=== PATIENT | male | born 1945 | race Caucasian/White ===

== ENCOUNTER → 2024-08-31 | Outpatient (BNVA) | payer OTHER, SELFPAY | END | disposition home or self-care (01) | PROVIDERS: PCP Internal Medicine; Referring Provider Internal Medicine; Visit Provider Urology | DX: C61 Malignant neoplasm of prostate (principal); N40.1 Benign prostatic hyperplasia with lower urinary tract symptoms; N13.8 Other obstructive and reflux uropathy; I11.0 Hypertensive heart disease with heart failure; I50.9 Heart failure, unspecified; K21.9 Gastro-esophageal reflux disease without esophagitis; Z87.891 Personal history of nicotine dependence | CPT/HCPCS: 55700; 76872; 76942; 81003; 96372; 99212; A4649; J3260; J3490; A9270; G0463 ==

== ENCOUNTER → 2024-09-14 | Outpatient (BNVA) | payer OTHER, SELFPAY | END | disposition home or self-care (01) | PROVIDERS: PCP Internal Medicine; Referring Provider Internal Medicine; Visit Provider Urology | DX: N40.1 Benign prostatic hyperplasia with lower urinary tract symptoms (principal); N13.8 Other obstructive and reflux uropathy; C61 Malignant neoplasm of prostate; N32.81 Overactive bladder; G62.9 Polyneuropathy, unspecified; Z86.73 Personal history of transient ischemic attack (TIA), and cerebral infarction without residual deficits; K21.9 Gastro-esophageal reflux disease without esophagitis | CPT/HCPCS: 81003; 99212; G0463 ==

== ENCOUNTER → 2024-09-17 | Outpatient (BNVA) | payer OTHER, SELFPAY | END | disposition home or self-care (01) | PROVIDERS: PCP Internal Medicine; Referring Provider Internal Medicine; Visit Provider Urology | DX: C61 Malignant neoplasm of prostate (principal); I11.0 Hypertensive heart disease with heart failure; I50.9 Heart failure, unspecified; K21.9 Gastro-esophageal reflux disease without esophagitis | CPT/HCPCS: 99212; G0463 ==

== ENCOUNTER → 2024-12-21 | Outpatient (BNVA) | payer MEDICARE, OTHER, SELFPAY | END | disposition home or self-care (01) | PROVIDERS: PCP Internal Medicine; Referring Provider Internal Medicine; Visit Provider Urology | DX: N40.1 Benign prostatic hyperplasia with lower urinary tract symptoms (principal); N13.8 Other obstructive and reflux uropathy; C61 Malignant neoplasm of prostate; N32.81 Overactive bladder; G62.9 Polyneuropathy, unspecified; E66.9 Obesity, unspecified; Z68.26 Body mass index [BMI] 26.0-26.9, adult; I11.0 Hypertensive heart disease with heart failure; I50.9 Heart failure, unspecified; Z86.73 Personal history of transient ischemic attack (TIA), and cerebral infarction without residual deficits; K21.9 Gastro-esophageal reflux disease without esophagitis | CPT/HCPCS: 81003; 99212; G0463 ==

== ENCOUNTER → 2025-01-13 | Outpatient (CLI) | payer MEDICARE, OTHER, SELFPAY ==
--- NOTE | 2025-01-13 10:29 | XR_ITS ---
Examination: Shoulder,left, 3 views Technique: Shoulder AP internal rotation, AP external rotation, Y view shoulder, 3 views Exam date and time :January 13, 2025 1125 hours INDICATIONS: Patient fell 5 days ago with injury to the shoulder, shoulder pain. FINDINGS: Prominent osteopenia. No shoulder fracture or dislocation Moderate narrowing glenohumeral joint IMPRESSION: No fracture or shoulder dislocation
== END | disposition home or self-care (01) ==
LOC: CDIM 10:11
PROVIDERS: PCP Internal Medicine; Referring Provider Internal Medicine; Visit Provider Internal Medicine
DX: S49.92XA Unspecified injury of left shoulder and upper arm, initial encounter (principal); W19.XXXA Unspecified fall, initial encounter
CPT/HCPCS: 73030

== ENCOUNTER → 2025-01-28 | Outpatient (CLI) | payer MEDICARE, OTHER, SELFPAY ==
[2025-01-28 10:52] LABS: Blood Urea Nitrogen 24 mg/dL (9-23); Creatinine (Component) 1.2 mg/dL (0.6-1.3); eGFR > 60 See Note
== END | disposition home or self-care (01) ==
LOC: COPL 08:43
PROVIDERS: PCP Internal Medicine; Referring Provider Urology; Visit Provider Urology
DX: C61 Malignant neoplasm of prostate (principal)
CPT/HCPCS: 36415; 82565; 84520

== ENCOUNTER → 2025-02-17 | Outpatient (CLI) | payer MEDICARE, OTHER, SELFPAY ==
--- NOTE | 2025-02-17 12:46 | XR_ITS ---
Examination: MRI pelvis with intravenous contrast. MRI pelvis without intravenous contrast. Date and time of exam: February 17, 2025 1334 hours INDICATIONS: Diagnosis malignant neoplasm prostate 2 weeks ago, staging Technique: Multiple axial, sagittal and coronal sections of the pelvis obtained. Transverse images, TR 6020, TE 107. T1 weighted transverse images, TR 582, TE 9.5. T2-weighted sagittal images, TR 4000, TE 105. T2-weighted sagittal images, TR 4000, TE 5. Coronal images, TR 4210, TE 107. Axial and coronal images are obtained post 17 cc intravenous injection, gadolinium. Findings: No common iliac and external iliac internal iliac lymphadenopathy 16mm 9 mm right common femoral, 9 mm 8 mm left common femoral lymph nodes Normal seminal vesicles Transverse prostate dimension 5.1 cm 11 mm posterior left lateral prostate nodule No findings diagnostic for osseous metastatic disease IMPRESSION: 11 mm posterior left lateral prostate nodule Common femoral lymphadenopathy as above
== END | disposition home or self-care (01) ==
PROVIDERS: PCP Student in an Organized Health Care Education/Training Program; Referring Provider Physician Assistant; Visit Provider Physician Assistant
DX: N40.2 Nodular prostate without lower urinary tract symptoms (principal); R59.0 Localized enlarged lymph nodes
CPT/HCPCS: 72197; A9579

== ENCOUNTER → 2025-03-16 | Outpatient (CLI) | payer MEDICARE, OTHER, SELFPAY ==
--- NOTE | 2025-03-16 09:15 | XR_ITS ---
MRI shoulder, left, without contrast. Date and time: March 16, 2025 1014 hours INDICATIONS: Patient fell December 2024 with into the shoulder, shoulder pain decreased range of motion 25% abduction Technique: Multiple axial, sagittal and coronal sections of the shoulder have been obtained. Siemens high-resolution 1.5 Tricia MRI scanner is utilized. Axial fat-suppressed sections, TR 2350, TE 18 T2-weighted coronal fat-saturated images, TR 3500, TE 7100 T1-weighted coronal images, TR 500, TE 15 T2-weighted sagittal fat-saturated images, TR 3500, TE 57 T1-weighted sagittal sections, TR 504, TE 13. Findings: Large, 4 cm, full-thickness rotator cuff tear Subscapularis insertion is full-thickness tear. Subscapularis bursa is evident. Long head of the biceps is in the bicipital groove. No definite tear of the biceps superior labral anchor is seen. Retraction of the musculotendinous junction of the rotator cuff is prominent. Tendinosis pattern is moderate. Distance between the acromium and humeral head is 6 mm Atrophy of the supraspinatus muscle is severe. Atrophy of the infraspinatus muscle is severe. Sagittal sections demonstrate a horizontal acromion. Acromioclavicular joint demonstrates mild osteoarthritis . Osacromiale is not identified. Tears of the anterior superior posterior labral margins. Bony glenoid fossa on the sagittal sections does not demonstrate osseous defect. Occult fracture or area of avascular necrosis is not seen. Acromioclavicular joint separation is not visible. Defect in the posterolateral margin of the humeral head is not seen Impression: Large full-thickness rotator cuff tear Full-thickness tear subscapularis insertion Tears of the anterior superior posterior labral margins
== END | disposition home or self-care (01) ==
LOC: SMRI 09:23
PROVIDERS: PCP Internal Medicine; Referring Provider Internal Medicine; Visit Provider Internal Medicine
DX: S43.432A Superior glenoid labrum lesion of left shoulder, initial encounter (principal); S46.012A Strain of muscle(s) and tendon(s) of the rotator cuff of left shoulder, initial encounter; W19.XXXA Unspecified fall, initial encounter
CPT/HCPCS: 73221

== ENCOUNTER → 2025-04-26 | Outpatient (BNVA) | payer MEDICARE, OTHER, SELFPAY | END | disposition home or self-care (01) | PROVIDERS: PCP Internal Medicine; Referring Provider Internal Medicine; Visit Provider Urology | DX: N40.1 Benign prostatic hyperplasia with lower urinary tract symptoms (principal); N13.8 Other obstructive and reflux uropathy; C61 Malignant neoplasm of prostate; J45.909 Unspecified asthma, uncomplicated; I83.93 Asymptomatic varicose veins of bilateral lower extremities; I11.0 Hypertensive heart disease with heart failure; I50.9 Heart failure, unspecified; G47.30 Sleep apnea, unspecified; K21.9 Gastro-esophageal reflux disease without esophagitis | CPT/HCPCS: 81003; 99212; G0463 ==

== ENCOUNTER → 2025-05-20 | Outpatient (CLI) | payer MEDICARE, OTHER, SELFPAY ==
[2025-05-20 10:04] LABS: Basophils # (Auto) 0.1 Thou/mm3 (0.0-0.2); Basophils % (Auto) 1 % (0-2.5); Eosinophils # (Auto) 0.3 Thou/mm3 (0.0-0.5); Eosinophils % (Auto) 4 % (0-10); Hematocrit 40.0 % (41.0-53.0); Hemoglobin 13.1 g/dL (13.5-16.0); Immature Granulocytes Auto 0.01 Thou/mm3 (0.00-0.00); Lymphocytes # (Auto) 2.1 Thou/mm3 (1.0-4.8); Lymphocytes % (Auto) 33 % (10-50); Mean Corpuscular HGB Conc 32.8 g/dl (31.0-37.0); Mean Corpuscular Hemoglobin 31.2 pg (25.0-35.0); Mean Corpuscular Volume 95 fL (80-100); Monocytes # (Auto) 0.5 Thou/mm3 (0.0-0.8); Monocytes % (Auto) 8 % (0-12); Neutrophils # (Auto) 3.4 Thou/mm3 (1.8-7.7); Neutrophils % (Auto) 54 % (37-80); Nucleated Red Blood Cell # 0.00 Thou/mm3 (0.00-0.00); Nucleated Red Blood Cell % 0 /100 WBC (0); Platelet Count 233 Thou/mm3 (140-440); RDW Standard Deviation 47.5 fL (35.1-43.9); Red Blood Count 4.20 Miln/mm3 (4.50-5.90); White Blood Count 6.4 Thou/mm3 (3.8-10.6)
[2025-05-20 10:07] LABS: INR 1.1 (0.9-1.3); Partial Thromboplastin Time 25.6 Seconds (22.0-36.0); Prothrombin Time 11.7 Seconds (9.0-12.2)
[2025-05-20 10:26] LABS: Alanine Aminotransferase 19 U/L (10-49); Albumin, Serum 4.2 gm/dL (3.4-4.8); Albumin/Globulin Ratio 2.2 (1.2-2.2); Alkaline Phosphatase 92 U/L (46-116); Anion Gap 9 (7-16); Aspartate Amino Transferase 23 U/L (0-34); BUN/Creatinine Ratio 18 Ratio (12-20); Bilirubin,Total 0.9 mg/dL (0.3-1.2); Blood Urea Nitrogen 20 mg/dL (9-23); Calcium 9.2 mg/dL (8.3-10.6); Calcium (Corrected) 9.2 mg/dL (8.5-10.1); Carbon Dioxide 27.0 mMol/L (20.0-31.0); Chloride 106 mMol/L (98-107); Creatinine (Component) 1.1 mg/dL (0.6-1.3); Globulin 1.9 gm/dL (2.3-3.5); Glucose 104 mg/dL (74-106); Osmolality,Calculated 285 (275-295); Potassium 4.0 mMol/L (3.4-5.1); Sodium 142 mMol/L (136-145); Total Protein 6.1 gm/dL (5.7-8.2); eGFR > 60 See Note
== END | disposition home or self-care (01) ==
LOC: COPL 08:37
PROVIDERS: PCP Internal Medicine; Referring Provider Internal Medicine; Visit Provider Internal Medicine
DX: I25.10 Atherosclerotic heart disease of native coronary artery without angina pectoris (principal); I48.91 Unspecified atrial fibrillation
CPT/HCPCS: 36415; 80053; 85025; 85610; 85730

== ENCOUNTER 2025-05-26 20:44 | Emergency (ER) | payer MEDICARE, OTHER, SELFPAY ==
[2025-05-26 20:49] VITALS: BMI 27.2
[2025-05-26 20:52] VITALS: BP 193/112; PULSE 79; RESP 18; TEMP 36.8; O2SAT 95
[2025-05-26 20:53] VITALS: BP 142/82; PULSE 74; RESP 19; O2SAT 96
--- NOTE | 2025-05-26 20:53 | PD.EDCHEST ---
ED Chest Pain RME/HPI General Chief Complaint: Chest Pain Stated Complaint: CHEST PAIN Time Seen by Provider: 05/26/25 20:53 Arrival date/time: 05/26/25 20:44 RME / HPI RME / HPI narrative: DR. DIEGO MAIN ED EVALUATION: 79 y/o male with Hx of HTN, CHF, TIA and GERD BIBA from home presents to ED c/p sudden onset severe chest pain with shortness of breath while watching television x 1 hour ago. Pain is sharp and non-radiating. Patient recently had angiogram of the left lower extremity performed by Dr. Mantilla. Denies any nausea or history of MS. Patient initially thought symptoms were due to heartburn and took an antacid. He was also given 2 Nitro SL 0.4 mg and Nitro Patch RIB BENDER. Denies any current chest tightness, heaviness, or pressure. No other concerns or complaints expressed at this time. Related Data Home Medications ?Medication ?Instructions ?Recorded ?Confirmed aspirin 81 mg tablet,delayed 81 mg PO QDAY 08/12/23 04/26/25 release duloxetine 30 mg capsule,delayed 30 mg PO BID 08/12/23 04/26/25 release (Cymbalta) fluticasone propionate 50 1 spray intranasal Q12H 08/12/23 04/26/25 mcg/actuation nasal spray,suspension (Flonase Allergy Relief) gabapentin 800 mg tablet 800 mg PO TID 08/12/23 04/26/25 (Neurontin) loratadine 10 mg tablet (Claritin) 10 mg PO QDAY 08/12/23 04/26/25 omeprazole 40 mg capsule,delayed 40 mg PO QDAY 08/12/23 04/26/25 release tamsulosin 0.4 mg capsule (Flomax) 0.4 mg PO QDAY 08/12/23 04/26/25 triamterene 75 1 tab PO QAM 08/12/23 04/26/25 mg-hydrochlorothiazide 50 mg tablet (Maxzide) oxybutynin chloride 10 mg 10 mg PO QDAY 07/13/24 04/26/25 tablet,extended release 24 hr Previous Rx's ?Medication ?Instructions ?Recorded acetaminophen 325 mg tablet 650 mg (2 x 325 mg) PO QID #90 tabs 08/13/23 doxycycline hyclate 100 mg tablet 100 mg PO BID #14 tabs 08/13/23 Allergies Allergy/AdvReac Type Severity Reaction Status Date / Time bee venom protein (honey bee) Allergy Severe Anaphylaxis Verified 04/26/25 10:58 codeine AdvReac Severe HEADACHE Verified 04/26/25 10:58 Review of Systems Review of Systems Systems Reviewed: All systems reviewed, normal except as documented Past Medical History Past Medical History NEUROLOGIC: Positive Cerebrovascular Accident (?), Transient Ischemic Attacks (TIA) (no deficits) and Peripheral Neuropathy CARDIAC: Positive Angina, Congestive Heart Failure, Edema and Hypertension RESPIRATORY: Positive Asthma, Bronchitis, Pneumonia and Sleep Apnea (uses cpap nightly) GASTROINTESTINAL: Positive Gastrointestinal Disorders and Gastroesophageal Reflux Disease GENITOURINARY: Positive Genitourinary Disorders and Benign Prostatic Hyperplasia MUSCULOSKELETAL: Positive Musculoskeletal Disorders and Arthritis PSYCHO/SOCIAL: Positive Anxiety OTHER HISTORY: Positive Hospitalization (2 weeks ago for UTI, Pnemonia), Shingles (2015), Chicken Pox, Measles and Mumps Family History FAMILY HISTORY: Positive Family Respiratory Disorders (BROTHER (COPD)), Family Cardiac Disorders (MOTHER,BROTHER (MS),FATHER (CVA)) and Family Surgery (MOTHER) Surgical History SURGICAL: Positive Cardiac Catheterization, Angiogram (clear), Eye Surgery (JOHNNY EYELIDS LIFTED,cataract sx), Arthroscopy (left knee) and Vasectomy Social History SMOKING STATUS: Former smoker ED Exam Narrative Physical exam: Generally patient is alert no obvious distress, heart is regular rate and rhythm, lungs clear to auscultation equal bilaterally, abdomen soft bowel sounds present nondistended nontender, extremities show contusion to the left groin region. No active bleeding. No expanding hematoma. Neurologic exam no focal motor or sensory deficits cranial nerves II through XII grossly intact Course Course Course Narrative: CXR is ordered for determining the etiology of shortness of breath. Quality Measures none Orders Category Date Time Status EKG (ED ONLY) *Do not use* NOW Care 05/26/25 20:58 Completed EKG (ED Only) Stat Exams 05/26/25 20:58 Ordered XR chest 1V portable Stat Exams 05/26/25 20:58 Completed BNP [B-Type Natriuretic Peptide] Stat Lab 05/26/25 21:05 Completed CBC Stat Lab 05/26/25 21:05 Completed CMP [Comprehensive Metabolic Panel] Stat Lab 05/26/25 21:05 Completed Troponin I Stat Lab 05/26/25 21:05 Completed Troponin I Stat Lab 05/26/25 22:55 Completed Vital Signs Vital signs: Vital Signs Temperature 98.3 F 05/26/25 20:52 Pulse Rate 79 05/26/25 20:52 Respiratory Rate 18 05/26/25 20:52 Blood Pressure 193/112 H 05/26/25 20:52 Pulse Oximetry (%) 95 05/26/25 20:52 Oxygen Delivery Method Room Air 05/26/25 20:52 Chest Pain MDM Narrative MDM Narrative:: Scribe Attestation: ITere, am scribing for and in the presence of Dr. Diego. Provider Notation: Although this document has been carefully reviewed, there may still be some phonetic and other typographical errors.? These errors are purely grammatical due to imperfections in the software program and should not be construed in any way to? compromise the substance of the patient's medical care during this visit. I interpreted all labs. 2 separate troponins spaced 2 hours apart each were not elevated. EKG is nonischemic with a right bundle branch block. Chest x-ray is normal. Heart score is 3. Patient is chest pain-free throughout the entire ER stay. Patient is resting comfortably. He does have primary care follow-up. He is to continue all current medications. Follow-up with his doctor. Return to ER as needed or if condition worsens. Patient data External records reviewed:: [facility] previous records (Reviewed prior ED records from 07/27/23. Patient was seen for YASMEEN (acute kidney injury).) and EMS form Clinical information provided by:: patient and EMS Social determinants that could affect healthcare access:: none Patient has the following chronic illnesses:: Peripheral Neuropathy, Angina, Congestive Heart Failure, Edema, Hypertension, Asthma, Sleep Apnea (uses cpap nightly), Gastroesophageal Reflux Disease, Benign Prostatic Hyperplasia, Arthritis, Anxiety How is presenting disease/condition affected by chronic disease/condition?: exacerbated by Evaluation data The following diagnostics were reviewed and interpreted by me:: lab results, radiology exam(s) and EKG tracing(s) Lab and/or radiology exams considered but not ordered:: None Interpretation Summary: RADIOLOGY Chest X-Ray: FINDINGS: Normal heart size No pneumonia or pulmonary edema Prominent osteopenia Significant osteoarthritis glenohumeral joint IMPRESSION: No active disease. Medications / Prescriptions Medications or Prescriptions considered but not ordered:: None Medication administrations:: See above. Consultations Consultation(s) initiated? (list below): No Diagnosis Chest Pain Differential Diagnosis: stable angina, unstable angina pectoris, atypical chest pain, st elevation myocardial infarction, costochondritis, chest pain and other (Non-STEMI) Most likely diagnosis given after review of the tests above:: None Admission Indicated Admission indicated?: not indicated Explain why admission is indicated or not indicated:: Patient does not meet admission criteria. Admission Request Was there a request for admission?: No Disposition Plan Disposition Plan: Discharge Discharge Attestation Discharge Attestation: The patient and all family members were given an opportunity to ask questions and understood the discharge instructions. Discharge instructions specifically effects, indications for sooner follow up or return to the emergency department, and the expected course of current diagnosis. Patient condition: Stable Discharge Plan Plan Patient Disposition: HOME (Self Care) Prescriptions/Referrals Prescriptions/Med Rec: No Action oxybutynin chloride 10 mg tablet extended release 24hr 10 mg PO QDAY omeprazole 40 mg Capsule,Delayed Release(Dr/Ec) 40 mg PO QDAY aspirin 81 mg Tablet,Delayed Release (Dr/Ec) 81 mg PO QDAY tamsulosin [Flomax] 0.4 mg Capsule 0.4 mg PO QDAY gabapentin [Neurontin] 800 mg Tablet 800 mg PO TID triamterene-hydrochlorothiazid [Maxzide] 75-50 mg Tablet 1 tab PO QAM fluticasone propionate [Flonase Allergy Relief] 50 mcg/actuation [place],Suspension 1 spray INTRANASAL Q12H Rx Instructions: administer into each nostril loratadine [Claritin] 10 mg Tablet 10 mg PO QDAY duloxetine [Cymbalta] 30 mg Capsule,Delayed Release(Dr/Ec) 30 mg PO BID acetaminophen 325 mg tablet 650 mg PO QID Qty: 90 0RF doxycycline hyclate 100 mg tablet 100 mg PO BID Qty: 14 0RF Referrals: Eloisa Miller MD [Primary Care Provider] - In 1 week Problem List Clinical Impression: Chest pain Patient/Caregiver Discharge Instructions Education Materials: ED Chest Pain, Uncertain Cause Additional Instructions: Continue all current medications. Follow-up with your doctor. Return to ER as needed or if condition worsens. Print Language: [place] Stand Alone Forms: Shasha Award Info., Patient Portal Info Letter
[2025-05-26 20:54] VITALS: PULSE 74; RESP 18; O2SAT 98; BMI 25.8
--- NOTE | 2025-05-26 20:58 | XR_ITS ---
Examination: AP chest single view TECHNIQUE: AP portable upright chest single view Date and time: May 26, 20252102 hours COMPARISON: July 29, 2023 INDICATIONS: Chest pain today. FINDINGS: Normal heart size No pneumonia or pulmonary edema Prominent osteopenia Significant osteoarthritis glenohumeral joint IMPRESSION: No active disease.
[2025-05-26 21:13] LABS: Basophils # (Auto) 0.1 Thou/mm3 (0.0-0.2); Basophils % (Auto) 1 % (0-2.5); Eosinophils # (Auto) 0.3 Thou/mm3 (0.0-0.5); Eosinophils % (Auto) 4 % (0-10); Hematocrit 36.7 % (41.0-53.0); Hemoglobin 12.1 g/dL (13.5-16.0); Immature Granulocytes Auto 0.02 Thou/mm3 (0.00-0.00); Lymphocytes # (Auto) 1.8 Thou/mm3 (1.0-4.8); Lymphocytes % (Auto) 24 % (10-50); Mean Corpuscular HGB Conc 33.0 g/dl (31.0-37.0); Mean Corpuscular Hemoglobin 31.5 pg (25.0-35.0); Mean Corpuscular Volume 96 fL (80-100); Monocytes # (Auto) 0.6 Thou/mm3 (0.0-0.8); Monocytes % (Auto) 8 % (0-12); Neutrophils # (Auto) 4.8 Thou/mm3 (1.8-7.7); Neutrophils % (Auto) 63 % (37-80); Nucleated Red Blood Cell # 0.00 Thou/mm3 (0.00-0.00); Nucleated Red Blood Cell % 0 /100 WBC (0); Platelet Count 203 Thou/mm3 (140-440); RDW Standard Deviation 46.5 fL (35.1-43.9); Red Blood Count 3.84 Miln/mm3 (4.50-5.90); White Blood Count 7.6 Thou/mm3 (3.8-10.6)
[2025-05-26 21:37] LABS: Alanine Aminotransferase 43 U/L (10-49); Albumin, Serum 4.0 gm/dL (3.4-4.8); Albumin/Globulin Ratio 2.1 (1.2-2.2); Alkaline Phosphatase 121 U/L (46-116); Anion Gap 9 (7-16); Aspartate Amino Transferase 108 U/L (0-34); BUN/Creatinine Ratio 10 Ratio (12-20); Bilirubin,Total 1.1 mg/dL (0.3-1.2); Blood Urea Nitrogen 10 mg/dL (9-23); Calcium 9.6 mg/dL (8.3-10.6); Calcium (Corrected) 9.6 mg/dL (8.5-10.1); Carbon Dioxide 28.5 mMol/L (20.0-31.0); Chloride 108 mMol/L (98-107); Creatinine (Component) 1.0 mg/dL (0.6-1.3); Estimated Creatinine Clearance 59.8 mL/min (>60); Globulin 1.9 gm/dL (2.3-3.5); Glucose 98 mg/dL (74-106); Osmolality,Calculated 287 (275-295); Potassium 3.7 mMol/L (3.4-5.1); Sodium 145 mMol/L (136-145); Total Protein 5.9 gm/dL (5.7-8.2); Troponin I < 0.020 ng/mL (0.0-0.045); eGFR > 60 See Note
[2025-05-26 22:18] LABS: B-Type Natriuretic Peptide 90 pg/mL (0-100)
[2025-05-26 22:41] VITALS: BP 107/62; PULSE 59; RESP 14; O2SAT 96
[2025-05-26 22:51] VITALS: BP 107/62; PULSE 61; RESP 15; O2SAT 96
--- NOTE | 2025-05-26 22:56 | PC.NURSE ---
ENTERED ROOM PT AWAKE I REMOVED NITRO PATCH. PT AAO X4 BE RAILS UP X2 BED LOW LOCKED CALL LIGHT WITHIN REACH
[2025-05-26 23:17] LABS: Troponin I < 0.020 ng/mL (0.0-0.045)
[2025-05-27 00:18] VITALS: BP 114/63; PULSE 56; RESP 16; TEMP 36.7; O2SAT 98
== END 2025-05-27 00:22 | disposition home or self-care (01) ==
PROVIDERS: Emergency Provider Emergency Medicine; PCP Family Medicine
DX: R07.9 Chest pain, unspecified (principal); I11.0 Hypertensive heart disease with heart failure; I50.9 Heart failure, unspecified; Z86.73 Personal history of transient ischemic attack (TIA), and cerebral infarction without residual deficits
CPT/HCPCS: 36415; 71045; 80053; 83880; 84484; 85025; 93005; 99283

== ENCOUNTER → 2025-05-30 | Outpatient (CLI) | payer MEDICARE, OTHER, SELFPAY ==
[2025-05-30 10:15] LABS: Anion Gap 7 (7-16); BUN/Creatinine Ratio 17 Ratio (12-20); Blood Urea Nitrogen 19 mg/dL (9-23); Calcium 10.2 mg/dL (8.3-10.6); Carbon Dioxide 28.7 mMol/L (20.0-31.0); Chloride 106 mMol/L (98-107); Creatinine (Component) 1.1 mg/dL (0.6-1.3); Glucose 97 mg/dL (74-106); Osmolality,Calculated 285 (275-295); Potassium 4.3 mMol/L (3.4-5.1); Sodium 142 mMol/L (136-145); eGFR > 60 See Note
== END | disposition home or self-care (01) ==
LOC: COPL 09:09
PROVIDERS: PCP Internal Medicine; Referring Provider Urology; Visit Provider Urology
DX: C61 Malignant neoplasm of prostate (principal)
CPT/HCPCS: 36415; 80048

== ENCOUNTER → 2025-06-01 | Outpatient (CLI) | payer MEDICARE, OTHER, SELFPAY ==
--- NOTE | 2025-06-01 15:00 | XR_ITS ---
Examination: Bone scan whole body, radioisotope Date and time of exam: June 01, 2025 1511 hours INDICATIONS: Diagnosis malignant neoplasm prostate this month, staging Technique: Study has been performed with intravenous administration of 24.5 mci 99M technetium MDP. Anterior, posterior whole body images are obtained. Images have been obtained including the lower extremities. Findings: Asymmetric isotope accumulation about the feet Increased isotope accumulation L4 on the left Heterogeneous uptake in the thoracic spine Increased isotope accumulation posterior left eighth rib IMPRESSION: Positive bone scan suspicious for osseous metastatic disease Recommend plain films lumbar thoracic spine, bilateral rib series follow-up
== END | disposition home or self-care (01) ==
LOC: SNUC 08:18
PROVIDERS: PCP Internal Medicine; Referring Provider Urology; Visit Provider Urology
DX: R93.7 Abnormal findings on diagnostic imaging of other parts of musculoskeletal system (principal); C61 Malignant neoplasm of prostate
CPT/HCPCS: 78306; A9503

== ENCOUNTER → 2025-06-08 | Outpatient (CLI) | payer MEDICARE, OTHER, SELFPAY ==
--- NOTE | 2025-06-08 10:02 | XR_ITS ---
Examination: CT abdomen with intravenous contrast CT pelvis with intravenous contrast 2-D coronal reconstructions 2-D sagittal reconstructions Date and time of exam:June 08, 2025, 1025 hours, comparison July 27, 2023. INDICATIONS: Diagnosis malignant neoplasm prostate. CTDI: vol (mGy) 15 DLP: (mGycm) 912 Technique: Multiple axial sections of the abdomen and pelvis have been obtained. 64 slice high-resolution scanner used. 3 mm axial sections have been obtained, post intravenous injection Isovue 370 2-D sagittal, coronal reconstructions obtained. Low dose protocols were performed. One or more of the following dose reduction techniques were used; automated exposure control, adjustment of the mA and/or KV according to patient size, use of iterative reconstruction technique. Findings: No focal liver or splenic lesions No gallstones No pancreatic or adrenal mass. 1 to 3 mm bilateral renal calculi, no hydronephrosis Aorta normal size 10 mm left lateral periaortic lymph nodes 10 mm left common iliac lymph node No diverticulitis Urinary bladder wall thickening up to 12 mm Prostatomegaly, 5.2 cm with prostate calcifications 18 mm sclerotic focus posterior right iliac bone, 16 mm sclerotic focus right first sacral wing IMPRESSION: Bilateral renal calculi 10 mm left lateral periaortic lymph node, 10 mm left common iliac lymph node, consider PET CT scan follow-up Osteoblastic foci as above, please see the [facility] bone scan report June 01, 2025
== END | disposition home or self-care (01) ==
PROVIDERS: PCP Internal Medicine; Referring Provider Urology; Visit Provider Urology
DX: N20.0 Calculus of kidney (principal); C61 Malignant neoplasm of prostate
CPT/HCPCS: 74177; A4649; Q9967

== ENCOUNTER → 2025-06-10 | Outpatient (CLI) | payer MEDICARE, OTHER, SELFPAY ==
[2025-06-10 15:22] LABS: Basophils # (Auto) 0.1 Thou/mm3 (0.0-0.2); Basophils % (Auto) 1 % (0-2.5); Eosinophils # (Auto) 0.3 Thou/mm3 (0.0-0.5); Eosinophils % (Auto) 4 % (0-10); Hematocrit 39.0 % (41.0-53.0); Hemoglobin 12.8 g/dL (13.5-16.0); Immature Granulocytes Auto 0.02 Thou/mm3 (0.00-0.00); Lymphocytes # (Auto) 2.4 Thou/mm3 (1.0-4.8); Lymphocytes % (Auto) 29 % (10-50); Mean Corpuscular HGB Conc 32.8 g/dl (31.0-37.0); Mean Corpuscular Hemoglobin 31.4 pg (25.0-35.0); Mean Corpuscular Volume 96 fL (80-100); Monocytes # (Auto) 0.6 Thou/mm3 (0.0-0.8); Monocytes % (Auto) 7 % (0-12); Neutrophils # (Auto) 4.9 Thou/mm3 (1.8-7.7); Neutrophils % (Auto) 60 % (37-80); Nucleated Red Blood Cell # 0.00 Thou/mm3 (0.00-0.00); Nucleated Red Blood Cell % 0 /100 WBC (0); Platelet Count 230 Thou/mm3 (140-440); RDW Standard Deviation 47.8 fL (35.1-43.9); Red Blood Count 4.07 Miln/mm3 (4.50-5.90); White Blood Count 8.3 Thou/mm3 (3.8-10.6)
[2025-06-10 15:41] LABS: Anion Gap 9 (7-16); BUN/Creatinine Ratio 17 Ratio (12-20); Blood Urea Nitrogen 17 mg/dL (9-23); Calcium 9.9 mg/dL (8.3-10.6); Carbon Dioxide 29.4 mMol/L (20.0-31.0); Chloride 108 mMol/L (98-107); Creatinine (Component) 1.0 mg/dL (0.6-1.3); Glucose 80 mg/dL (74-106); INR 1.1 (0.9-1.3); Osmolality,Calculated 291 (275-295); Partial Thromboplastin Time 25.4 Seconds (22.0-36.0); Potassium 4.1 mMol/L (3.4-5.1); Prothrombin Time 11.9 Seconds (9.0-12.2); Sodium 146 mMol/L (136-145); eGFR > 60 See Note
== END | disposition home or self-care (01) ==
LOC: COPL 14:27
PROVIDERS: PCP Internal Medicine; Referring Provider Internal Medicine; Visit Provider Internal Medicine
DX: I25.10 Atherosclerotic heart disease of native coronary artery without angina pectoris (principal); I48.91 Unspecified atrial fibrillation
CPT/HCPCS: 36415; 80048; 85025; 85610; 85730

== ENCOUNTER → 2025-06-21 | Outpatient (BNVA) | payer MEDICARE, OTHER, SELFPAY | END | disposition home or self-care (01) | PROVIDERS: PCP Internal Medicine; Referring Provider Internal Medicine; Visit Provider Urology | DX: N32.89 Other specified disorders of bladder (principal); N32.3 Diverticulum of bladder; N40.1 Benign prostatic hyperplasia with lower urinary tract symptoms; N13.8 Other obstructive and reflux uropathy; C61 Malignant neoplasm of prostate; I11.0 Hypertensive heart disease with heart failure; I50.9 Heart failure, unspecified; G47.30 Sleep apnea, unspecified; K21.9 Gastro-esophageal reflux disease without esophagitis; Z86.73 Personal history of transient ischemic attack (TIA), and cerebral infarction without residual deficits | CPT/HCPCS: 52000; 81003; 96372; A4217; A4649; C1894; J1580; A9270 ==

== ENCOUNTER → 2025-07-05 | Outpatient (CLI) | payer MEDICARE, OTHER, SELFPAY ==
--- NOTE | 2025-07-05 11:12 | XR_ITS ---
Examination: Ribs, bilateral, with PA chest, 4 views Technique: Chest PA, RIBS AP, RPO, LPO, 4 views Exam date and time: July 05, 2025 1125 hours INDICATIONS: Diagnosis malignant neoplasm prostate, positive nuclear medicine bone scan in the ribs on examination June 01, 2025 Findings: Normal heart size Lungs are clear Moderate osteopenia No findings diagnostic for osteoblastic metastatic disease involving the ribs IMPRESSION: No findings diagnostic for osteoblastic metastatic disease involving the ribs
--- NOTE | 2025-07-05 11:12 | XR_ITS ---
Examination: Thoracic spine 3 views Technique one AP lateral coned lateral upper dorsal spine 3 views Date and time: July 05, 2025, 1125 hours INDICATIONS: Diagnosis malignant neoplasm prostate, positive bone scan thoracic spine Examination June 01, 2025 FINDINGS: Severe osteopenia Moderate to advanced diffuse thoracic degenerative disc disease including prominent thoracic spondylosis No findings diagnostic for osteoblastic metastatic disease IMPRESSION: No findings diagnostic for osteoblastic metastatic disease
--- NOTE | 2025-07-05 11:12 | XR_ITS ---
Examination: Lumbar spine, 5 views Technique: Lumbar spine AP, lateral, coned lateral lower lumbar spine, bilateral obliques 5 views Exam date and time: July 05, 2025 1125 hours INDICATIONS: Diagnosis malignant neoplasm prostate, nuclear medicine bone scan June 01, 2025 positive bone scan L4 FINDINGS: Adequate alignment lumbar vertebral bodies on the lateral view Diffuse moderate to advanced lumbar degenerative disc disease Prominent lumbar spondylosis, likely accounting for the isotope accumulation No findings diagnostic for osteoblastic metastatic disease IMPRESSION: No findings diagnostic for osteoblastic metastatic disease
== END | disposition home or self-care (01) ==
LOC: SDIM 11:05
PROVIDERS: PCP Internal Medicine; Referring Provider Urology; Visit Provider Urology
DX: R93.7 Abnormal findings on diagnostic imaging of other parts of musculoskeletal system (principal); C61 Malignant neoplasm of prostate
CPT/HCPCS: 71111; 72072; 72110

== ENCOUNTER → 2025-09-02 | Outpatient (BNVA) | payer MEDICARE, OTHER, SELFPAY | END | disposition home or self-care (01) | PROVIDERS: PCP Internal Medicine; Referring Provider Internal Medicine; Visit Provider Urology | DX: C61 Malignant neoplasm of prostate (principal); I10 Essential (primary) hypertension | CPT/HCPCS: 99212; G0463 ==

== ENCOUNTER → 2025-09-19 | Outpatient (CLI) | payer MEDICARE, OTHER, SELFPAY ==
--- NOTE | 2025-09-19 09:26 | XR_ITS ---
Examination: Right hip AP, lateral, AP pelvis 3 views Technique: Hip AP lateral, AP pelvis, 3 views Exam date and time: September, 0951 hours INDICATION: Right hip pain beginning 2 weeks ago FINDINGS: Moderate bilateral hip osteoarthritis No right hip fracture or dislocation Left hip bones of the pelvis intact IMPRESSION: Moderate bilateral hip osteoarthritis.
== END | disposition home or self-care (01) ==
PROVIDERS: PCP Internal Medicine; Referring Provider Internal Medicine; Visit Provider Internal Medicine
DX: M16.0 Bilateral primary osteoarthritis of hip (principal)
CPT/HCPCS: 73502